=== PATIENT | male | born 1930 | race Caucasian/White ===

== ENCOUNTER 2020-12-08 13:35 | Outpatient (CLI) | payer MEDICARE, BC | END 2020-12-08 13:36 | disposition home or self-care (01) | LOC: CT 13:35 | PROVIDERS: ATTEND Thoracic Surgery (Cardiothoracic Vascular Surgery) | DX: I73.9 Peripheral vascular disease, unspecified (principal); I70.8 Atherosclerosis of other arteries; K55.1 Chronic vascular disorders of intestine; I77.1 Stricture of artery | CPT/HCPCS: 75635; 82565 ==

== ENCOUNTER 2020-12-12 17:40 | Inpatient (IN) | payer MEDICARE, BC ==
[2020-12-12 18:36] LABS: #Eosinphils 0.1 thou/uL (0.0-0.7); #Monocytes 1.5 thou/uL (0.11-0.59); #Neutrophils 8.6 thou/uL (1.40-6.50); %Basophils 0.3 % (0.0-1.0); %Eosinophils 0.6 % (0.0-10.0); %Lymphocytes 9.2 % (21.0-51.0); %Monocytes 13.1 % (0.0-10.0); %Neutrophils 76.9 % (42.0-75.0); Hemoglobin 13.9 g/dL (14.0-18.0); Mean Corpuscular HGB CONC 33.7 g/dL (32.0-36.0); Mean Corpuscular Hemoglobin 29.8 pg (27.0-31.0); Mean Corpuscular Volume 88.6 fL (78.0-98.0); Mean Platelet Volume 6.4 fL (7.4-10.4); Platelet Count 181 thou/uL (130-400); RBC Distribution Width 13.1 % (11.5-14.5); Red Blood Cell (RBC) Count 4.65 mill/uL (4.70-6.10); White Blood Cell (WBC) Count 11.1 thou/uL (4.8-10.8)
[2020-12-12 18:55] LABS: ALT (SGPT) 14 U/L (8-55); AST (SGOT) 28 U/L (5-34); Albumin 4.2 g/dL (3.4-4.8); Alkaline Phosphatase 67 U/L (40-110); Anion Gap 13 mmol/L (10-20); BUN (Urea Nitrogen) 29 mg/dL (8.4-25.7); Calc. Creatinine Clearance 0 mL/min (70-130); Calcium 9.6 mg/dL (7.8-10.44); Carbon Dioxide 24 mmol/L (23-31); Chloride 98 mmol/L (98-107); Globulin 3.3 g/dL (2.4-3.5); Glucose 136 mg/dL (83-110); Potassium 4.3 mmol/L (3.5-5.1); Protein, Total 7.5 g/dL (5.8-8.1); Sodium 131 mmol/L (136-145)
[2020-12-12 20:21] LABS: Bilirubin Negative (Negative); Blood, Urine Negative (Negative); Clarity Clear (Clear); Glucose, Urine (Dipstick) Normal (Negative); Ketone, Urine Negative (Negative); Leukocyte Negative Leu/uL (Negative); Nitrite Negative (Negative); Protein, Urine (Dipstick) Negative (Neg-Trace); Specific Gravity, Urine 1.015 (1.002-1.036); Urobilinogen Normal mg/dL (Less than 2)
[2020-12-13 00:52] VITALS: BMI 28.8
[2020-12-13] MEDS ORDERED: Ondansetron PF 4 MG/2 ML Vial IVP PRN (01:29)
[2020-12-13 02:00] LABS: #Eosinphils 0.1 thou/uL (0.0-0.7); #Lymphocytes 1.1 thou/uL (1.20-3.40); #Monocytes 1.4 thou/uL (0.11-0.59); #Neutrophils 7.5 thou/uL (1.40-6.50); %Basophils 0.1 % (0.0-1.0); %Eosinophils 0.8 % (0.0-10.0); %Lymphocytes 10.8 % (21.0-51.0); %Monocytes 13.8 % (0.0-10.0); %Neutrophils 74.6 % (42.0-75.0); Hemoglobin 13.4 g/dL (14.0-18.0); Mean Corpuscular HGB CONC 33.4 g/dL (32.0-36.0); Mean Corpuscular Hemoglobin 29.8 pg (27.0-31.0); Mean Corpuscular Volume 89.2 fL (78.0-98.0); Mean Platelet Volume 6.3 fL (7.4-10.4); Platelet Count 165 thou/uL (130-400); RBC Distribution Width 13.3 % (11.5-14.5); Red Blood Cell (RBC) Count 4.49 mill/uL (4.70-6.10)
[2020-12-13 02:39] LABS: Anion Gap 15 mmol/L (10-20); BUN (Urea Nitrogen) 26 mg/dL (8.4-25.7); Calc. Creatinine Clearance 52 mL/min (70-130); Calcium 8.6 mg/dL (7.8-10.44); Carbon Dioxide 19 mmol/L (23-31); Chloride 101 mmol/L (98-107); Glucose 112 mg/dL (83-110); Potassium 4.7 mmol/L (3.5-5.1); Sodium 130 mmol/L (136-145)
[2020-12-13] MEDS: Acetaminophen 325 MG TAB PO PRN ×4 (03:29→21:29)
[2020-12-13] MEDS: Sodium Chloride 0.9% 1,000 ML IV SCH ×2 (03:32→18:06)
[2020-12-13] MEDS: Finasteride 5 MG TAB PO SCH (08:15)
[2020-12-14] MEDS: Acetaminophen 325 MG TAB PO PRN ×2 (04:12→09:47)
[2020-12-14] MEDS ORDERED: Iopamidol-370 76% 500 ML 1 ML ONE (09:26)
[2020-12-14] MEDS: Finasteride 5 MG TAB PO SCH (09:46)
[2020-12-14 11:53] VITALS: BP 138/62; TEMP 97.9
[2020-12-15] MEDS ORDERED: Clopidogrel Bisulfate 75 MG TAB PO SCH (09:00)
== END 2020-12-14 16:15 | disposition home or self-care (01) | DRG 312 ==
LOC: ERS 17:40 → 2SW 23:12 → OBSVTOIN 12-13 17:11
PROVIDERS: ADMIT Internal Medicine; ATTEND Emergency Medicine
DX: I95.1 Orthostatic hypotension (principal); E87.1 Hypo-osmolality and hyponatremia; Z20.822 Contact with and (suspected) exposure to COVID-19; E86.0 Dehydration; M79.604 Pain in right leg; I73.9 Peripheral vascular disease, unspecified; N40.0 Benign prostatic hyperplasia without lower urinary tract symptoms; I10 Essential (primary) hypertension; I25.10 Atherosclerotic heart disease of native coronary artery without angina pectoris; I65.21 Occlusion and stenosis of right carotid artery; E78.00 Pure hypercholesterolemia, unspecified; Z95.1 Presence of aortocoronary bypass graft; Z95.0 Presence of cardiac pacemaker; Z87.891 Personal history of nicotine dependence; Z79.82 Long term (current) use of aspirin; Z79.899 Other long term (current) drug therapy
CPT/HCPCS: 36415; 70450; 70498; 71045; 76936; 80048; 80053; 81003; 82550; 83605; 83735; 83880; 84146; 84443; 84484; 85025; 87040; 93005; 93306; 93880; 95712; 95819; 95957; G0378; Q9967

== ENCOUNTER 2020-12-22 13:30 | Inpatient (IN) | payer MEDICARE, BC ==
[2020-12-23 12:44] VITALS: BMI 28.4
[2020-12-24] MEDS ORDERED: EPINEPHrine 1 MG/ML AMP ONE (08:59)
[2020-12-24] MEDS ORDERED: Bupivacaine PF 0.5% 30 ML VIAL ONE (08:59)
[2020-12-24] MEDS ORDERED: Heparin 5,000 UNITS/ML VIAL ONE (08:59)
[2020-12-24] MEDS ORDERED: Protamine Sulfate 50 MG/5 ML VIAL ONE (08:59)
[2020-12-24] MEDS ORDERED: Dexamethasone 4 mg/ml Vial ONE (08:59)
[2020-12-24] MEDS ORDERED: Phenylephrine 10 MG/ML VIAL ONE (09:26)
[2020-12-24] MEDS ORDERED: Fentanyl 100 MCG/2 ML VIAL ONE (09:26)
[2020-12-24] MEDS ORDERED: Glycopyrrolate 0.2 MG/ML 5 ML SYRINGE ONE (09:52)
[2020-12-24] MEDS ORDERED: Dexamethasone 20 MG/5 ML VIAL ONE (09:52)
[2020-12-24] MEDS ORDERED: Ondansetron PF 4 MG/2 ML Vial ONE (09:52)
[2020-12-24] MEDS ORDERED: PROPOFOL 200 MG/20 ML VIAL ONE (09:52)
[2020-12-24] MEDS ORDERED: PHENYLEPHRINE-NS 100 MCG/ML 10 ML SYRINGE ONE (09:52)
[2020-12-24] MEDS ORDERED: Lidocaine 1% PF 5 ML VIAL ONE (09:52)
[2020-12-24] MEDS ORDERED: Rocuronium Bromide 10 MG/ML (10ML VIAL) ONE (09:52)
[2020-12-24] MEDS ORDERED: Promethazine HCl 25 MG/ML VIAL IVPB PRN (11:10)
[2020-12-24] MEDS ORDERED: Promethazine HCl 25 MG/ML VIAL IM PRN ×2 (11:10→11:16)
[2020-12-24] MEDS ORDERED: Ondansetron HCl/PF 4 MG/2 ML Vial IVP PRN (11:10)
[2020-12-24] MEDS ORDERED: Acetaminophen 325 MG TAB PO PRN (11:16)
[2020-12-24] MEDS ORDERED: Nitroglycerin 50 MG/250 ML BOT 250 ML IVPB PRN (11:16)
[2020-12-24] MEDS ORDERED: hydrALAZINE 20 MG/ML VIAL SLOW IVP PRN (11:16)
[2020-12-24] MEDS ORDERED: traMADol HCl 50 MG TAB PO PRN ×3 (11:16)
[2020-12-24] MEDS ORDERED: Ondansetron PF 4 MG/2 ML Vial IVP PRN (11:16)
[2020-12-24] MEDS: Sodium Chloride 0.9% 1,000 ML IV SCH ×2 (11:16→17:05)
[2020-12-24] MEDS ORDERED: Phenylephrine 40 MG in Sodium Chloride 0.9% 250 ML 250 ML IVPB PRN (11:16)
[2020-12-24] MEDS ORDERED: Fentanyl 100 MCG/2 ML VIAL SLOW IVP PRN (11:16)
[2020-12-24] MEDS: Acetaminophen 325 MG TAB PO PRN ×2 (16:44→23:46)
[2020-12-24] MEDS: CEFAZOLIN 2 GM in Premix Bag 1 BAG IVPB SCH (16:45)
[2020-12-24 17:54] VITALS: BP 129/82
[2020-12-24] MEDS ORDERED: Ezetimibe 10 MG TAB PO SCH (21:00)
[2020-12-24] MEDS ORDERED: Atorvastatin Calcium 10 MG TAB PO SCH (21:00)
[2020-12-24] MEDS: Azelastine 137 MCG/Spray 30 ML NS SCH (21:56)
[2020-12-25] MEDS: CEFAZOLIN 2 GM in Premix Bag 1 BAG IVPB SCH ×2 (01:54→08:48)
[2020-12-25] MEDS: Sodium Chloride 0.9% 1,000 ML IV SCH (07:20)
[2020-12-25] MEDS ORDERED: Fish Oil 1,000 MG CAP PO SCH (09:00)
[2020-12-25] MEDS ORDERED: Cholecalciferol 1,000 UNITS (25 MCG) TAB PO SCH (09:00)
[2020-12-25] MEDS ORDERED: Multivit, Therapeutic 1 TAB PO SCH (09:00)
[2020-12-25] MEDS ORDERED: Aspirin 81 mg Enteric Coated Tablet PO SCH (09:00)
[2020-12-25] MEDS ORDERED: Finasteride 5 MG TAB PO SCH (09:00)
[2020-12-25] MEDS ORDERED: Clopidogrel Bisulfate 75 MG TAB PO SCH (09:00)
[2020-12-25] MEDS ORDERED: Non-Formulary Item 1 EACH (Cinnamon Bark [Cinnamon] 500 MG Capsule) PO SCH (09:00)
[2020-12-25] MEDS ORDERED: Furosemide 20 MG TAB PO SCH (09:00)
[2020-12-25] MEDS: Azelastine 137 MCG/Spray 30 ML NS SCH (09:05)
[2020-12-25 15:08] VITALS: TEMP 98.2
== END 2020-12-25 12:20 | disposition home or self-care (01) | DRG 36 ==
LOC: SURG A 12-24 08:29 → CCU 12-24 15:01
PROVIDERS: ADMIT Thoracic Surgery (Cardiothoracic Vascular Surgery); ATTEND Thoracic Surgery (Cardiothoracic Vascular Surgery)
PROC: 037 Upper Arteries, Dilation (ICD-10-PCS; principal; 2020-12-24)
DX: I65.21 Occlusion and stenosis of right carotid artery (principal); I10 Essential (primary) hypertension; N40.0 Benign prostatic hyperplasia without lower urinary tract symptoms; I25.10 Atherosclerotic heart disease of native coronary artery without angina pectoris
CPT/HCPCS: 76000; C1725; C1876; C1884; J0171; J0690; J1100; J1642; J1644; J2370; J2405; J2704; J2720; J3010; J7620; S0020